=== PATIENT | female | born 1945 | race Caucasian/White ===

== ENCOUNTER → 2016-12-12 | Outpatient (CLI) | payer MEDICARE ==
[~2016-12-12] MED LIST: /BACL20TA; ARIMIDEX; AVONEX; FERR325T; KEPPRA; OXYB5TAB5; TOPI100T; VICO5TAB
[2016-12-12 12:56] LABS: CALCIUM LEVEL 8.4 MG/DL (8.8-10.2); CREATININE FOR GFR 0.99 MG/DL (0.55-1.02)
--- NOTE | 2016-12-12 18:21 | ECGEPIP ---
Stationary ECG Study [facility] Test Date: 2016-12-12 Pat Name: ANGELO DEL CID Department: Room: - Gender: F [employer] Instructor: KATIE : 1945 Requested By: Ruperto Arroyo Order Number: [id number] Reading MD: Yoni Rangel Measurements Intervals [place] Rate: 82 P: 21 CO: 131 QRS: -9 QRSD: 85 T: 2 QT: 381 QTc: 445 Interpretive Statements SINUS RHYTHM WITH SINUS ARRHYTHMIA INFERIOR MYOCARDIAL INFARCTION, PROBABLY OLD NO PRIOR TRACING IN THE SYSTEM. THERE WAS ARTIFACT MASKING THE BASELINE, NOTED PARTICULARLY IN THE LIMB LEADS Electronically Signed On 12-12-2016 18:21:23 EDT by Yoni Rangel
== END ==
LOC: M LAB 12:06
PROVIDERS: ATTEND Ophthalmology
DX: Z01.818 Encounter for other preprocedural examination (principal); H25.12 Age-related nuclear cataract, left eye

== ENCOUNTER → 2016-12-22 | Day surgery (SDC) | payer MEDICARE ==
[~2016-12-22] VITALS: Ht 154.9 cm; Wt 88.5 kg
[~2016-12-22] MED LIST changes: +ACETAMINOPHEN 325 MG TAB PO PRN; +ACETYLCHOLINE OPHTH SOLN 1% 2ML As Ordered ONE; +BALANCED SALT IRRIGATION SOLUTION 500ML BAG (FOR OR EYE MACHINE) As Ordered ONE; +CEFUROXIME 1MG/0.1ML INTRACAMERAL INJ As Ordered ONE; +D5W/0.2% SODIUM CHLORIDE 1,000 ML IV SCH; +HEALON DUET (HEALON 10MG/ML 0.55ML & HEALON ENDOCOAT 30MG/ML 0.85ML) As Ordered ONE; +KEPP1TAB2 PO; +LIDOCAINE 0.75%/EPINEPHRINE 0.025% IN BSS 1ML SYR INTRACAMERAL (OR ONLY) As Ordered ONE; +MIDAZOLAM INJ 2 MG/2 ML VIAL (J2250) As Ordered ONE; +OFLOXACIN 0.3 % (OCUFLOX) OPTH SOL 5ML OS ONE; +ONDANSETRON 4MG/2ML VIAL (J2405) IV PRN; +OXYBPOW XX; +PHENYLEPHRINE 2.5% OPHTH SOL 2ML OS ONE; +POVIDONE-IODINE 5% OPHTH PREP SOL 30ML As Ordered ONE; +PROPARACAINE 0.5% OPHTH SOL 15ML OS ONE; +TAMO20TA4 PO; +TOBRADEX OPHTH OINT 3.5 GM As Ordered ONE; +TOPA100T8 PO; +TRIMETHOBENZAMIDE 300 MG CAP PO PRN; +TROPICAMIDE 1% OPHTH SOLN 2 ML OS ONE; +ZOCO20TA PO; +fentaNYL 100 MCG/2 ML INJECTION (J3010) As Ordered ONE
[2016-12-22 11:35] VITALS: BP 140/77
--- NOTE | 2016-12-22 17:43 | RO ---
DATE OF PROCEDURE: 12/22/2016 PREOPERATIVE DIAGNOSIS: 1. Visually significant nuclear sclerotic cataract, left eye. 2. Fuchs endothelial corneal dystrophy. POSTOPERATIVE DIAGNOSIS: 1. Visually significant nuclear sclerotic cataract, Age-related cataract, left eye. 2. Fuchs endothelial corneal dystrophy. PROCEDURE: Cataract extraction with use of phacoemulsification and placement of intraocular lens Franklin [id number], 23.0 diopter, left eye. SURGEON: Andrew Ervin DO ROD PLACER: ANESTHESIA: Local with monitored anesthesia care (MAC). COMPLICATIONS: None. POSTOPERATIVE CONDITION: Stable. INDICATION FOR SURGERY: Blurred vision left eye affecting patient's activities of daily living. DESCRIPTION OF PROCEDURE: The patient was seen in the preoperative area and properly identified. The correct operative eye was identified and marked. Attention was turned to that eye. The patient received topical antibiotics in the preoperative area. The patient then received topical dilating drops consisting of tropicamide and phenylephrine. The patient was then transferred to the operating room. The correct side was reidentified. The patient received topical anesthetics and antibiotics on the surface of the eye. The eye was prepped and draped in a sterile fashion. The upper and lower eyelids were isolated with Tegaderm tape, and the lids were held open with an adjustable speculum. Using a sideport blade, a paracentesis incision was made. Intraocular preservative-free lidocaine was then injected into the anterior chamber. Viscoelastic was then injected into the anterior chamber through the paracentesis. Using a 2.65 mm sharp-tipped keratome, the anterior chamber was entered via a temporal clear corneal incision. A continuous curvilinear capsulorrhexis was created with the aid of a 26-gauge cystotome and Utrata forceps. Hydrodissection was performed with balanced salt solution (BSS) on a blunt cannula until the nucleus was freely mobile. Additional viscoelastic was placed to protect the corneal endothelium. The crystalline lens was phacoemulsified and aspirated. Additional cohesive viscoelastic was placed into the capsular bag to deepen it. An Franklin [id number] 23.0 diopter lens was placed into the capsular bag and confirmed by visualizing the continuous curvilinear capsulorrhexis. Additional irrigation and aspiration was used to remove cortical material and remaining viscoelastic. The clear corneal incision was hydrated with BSS on a blunt cannula. The lens was well positioned. The incisions were then tested for leaks and found to be negative. The eye was then palpated for appropriate pressure and adjusted accordingly with BSS. Cefuroxime, 0.5cc, was injected into the anterior chamber. The eyelid speculum was then carefully removed. Tobradex ointment was placed in the eye. An eye patch and shield were then secured over the eye. The patient tolerated the procedure well and was discharged to the recovery unit in a stable condition. BRANDON
== END | disposition home or self-care (01) ==
LOC: M SDC 09:02
PROVIDERS: ATTEND Ophthalmology
DX: H25.012 Cortical age-related cataract, left eye (principal); H18.51 Endothelial corneal dystrophy; R73.03 Prediabetes; E78.00 Pure hypercholesterolemia, unspecified; G35 Multiple sclerosis; E66.09 Other obesity due to excess calories; G62.9 Polyneuropathy, unspecified; Z68.38 Body mass index [BMI] 38.0-38.9, adult; Z88.8 Allergy status to other drugs, medicaments and biological substances; Z91.040 Latex allergy status; Z79.899 Other long term (current) drug therapy; Z85.3 Personal history of malignant neoplasm of breast; Z86.69 Personal history of other diseases of the nervous system and sense organs; Z92.21 Personal history of antineoplastic chemotherapy; Z92.3 Personal history of irradiation; Z78.0 Asymptomatic menopausal state
CPT/HCPCS: 66984; J2250; J3010; V2632

== ENCOUNTER → 2017-05-29 | Outpatient (REF) | payer MEDICARE ==
[~2017-05-29] MED LIST changes: -ACETAMINOPHEN 325 MG TAB PO PRN; -ACETYLCHOLINE OPHTH SOLN 1% 2ML As Ordered ONE; -BALANCED SALT IRRIGATION SOLUTION 500ML BAG (FOR OR EYE MACHINE) As Ordered ONE; -CEFUROXIME 1MG/0.1ML INTRACAMERAL INJ As Ordered ONE; -D5W/0.2% SODIUM CHLORIDE 1,000 ML IV SCH; -HEALON DUET (HEALON 10MG/ML 0.55ML & HEALON ENDOCOAT 30MG/ML 0.85ML) As Ordered ONE; -LIDOCAINE 0.75%/EPINEPHRINE 0.025% IN BSS 1ML SYR INTRACAMERAL (OR ONLY) As Ordered ONE; -MIDAZOLAM INJ 2 MG/2 ML VIAL (J2250) As Ordered ONE; -OFLOXACIN 0.3 % (OCUFLOX) OPTH SOL 5ML OS ONE; -ONDANSETRON 4MG/2ML VIAL (J2405) IV PRN; -PHENYLEPHRINE 2.5% OPHTH SOL 2ML OS ONE; -POVIDONE-IODINE 5% OPHTH PREP SOL 30ML As Ordered ONE; -PROPARACAINE 0.5% OPHTH SOL 15ML OS ONE; -TOBRADEX OPHTH OINT 3.5 GM As Ordered ONE; +TOPA100T12 PO; -TOPA100T8 PO; -TRIMETHOBENZAMIDE 300 MG CAP PO PRN; -TROPICAMIDE 1% OPHTH SOLN 2 ML OS ONE; -fentaNYL 100 MCG/2 ML INJECTION (J3010) As Ordered ONE
[2017-05-29 13:02] LABS: BASO % 0.9 % (0.0-1.0); EOS # 0.1 K/mm3 (0.0-0.50); EOS % 1.2 % (0.0-3.0); LARGE UNSTAINED CELL # 0.1 K/mm3 (0.0-0.4); LYMPH # 1.5 K/mm3 (1.5-4.5); MEAN CORPUSCULAR HEMOGLOBIN 31.4 pg (27.0-33.0); MEAN CORPUSCULAR HGB CONC 31.2 g/dl (32.0-36.5); MEAN CORPUSCULAR VOLUME 100.8 fl (80.0-96.0); MONO # 0.3 K/mm3 (0.0-0.8); MONO % 5.2 % (0.0-5.0); NEUTROPHILS # 3.6 K/mm3 (1.8-7.7); NEUTROPHILS % 64.8 % (36.0-66.0); PLATELET COUNT, AUTOMATED 197 k/mm3 (150-450); RED CELL DISTRIBUTION WIDTH 13.2 % (11.5-14.5); WHITE BLOOD COUNT 5.5 K/mm3 (4.0-10.0)
[2017-05-29 13:24] LABS: FOLATE 4.5 NG/ML; VITAMIN B12 LEVEL 224 PG/ML
[2017-05-29 13:29] LABS: ALBUMIN 3.1 GM/DL (3.2-5.2); ALBUMIN/GLOBULIN RATIO 0.79 (1.00-1.93); ALKALINE PHOSPHATASE 74 U/L (45-117); ALT/SGPT 12 U/L (12-78); ANION GAP 10 MEQ/L (8-16); AST/SGOT 14 U/L (15-37); BILIRUBIN,TOTAL 0.2 MG/DL (0.2-1.0); BLOOD UREA NITROGEN 13 MG/DL (7-18); CALCIUM LEVEL 8.8 MG/DL (8.8-10.2); CARBON DIOXIDE LEVEL 24 MEQ/L (21-32); CHLORIDE LEVEL 113 MEQ/L (98-107); CREATININE FOR GFR 0.91 MG/DL (0.55-1.02); GLOMERULAR FILTRATION RATE > 60.0 (>39); GLUCOSE, FASTING 107 MG/DL (83-110); SODIUM LEVEL 147 MEQ/L (136-145)
== END ==
LOC: M LABNEURO 11:00
PROVIDERS: ATTEND Psychiatry & Neurology Neurology
DX: G35 Multiple sclerosis (principal)

== ENCOUNTER → 2017-06-07 | Outpatient (REF) | payer MEDICARE | LOC: M LAB REF 16:46 | PROVIDERS: ATTEND Internal Medicine | DX: Z85.3 Personal history of malignant neoplasm of breast (principal) ==

== ENCOUNTER → 2017-11-13 | Outpatient (REF) | payer MEDICARE ==
[2017-11-13 19:02] LABS: ALBUMIN 3.2 GM/DL (3.2-5.2); ALBUMIN/GLOBULIN RATIO 0.82 (1.00-1.93); ALKALINE PHOSPHATASE 90 U/L (45-117); ALT/SGPT 10 U/L (12-78); ANION GAP 6 MEQ/L (8-16); AST/SGOT 10 U/L (7-37); BILIRUBIN,TOTAL 0.3 MG/DL (0.2-1.0); BLOOD UREA NITROGEN 13 MG/DL (7-18); CARBON DIOXIDE LEVEL 26 MEQ/L (21-32); CHLORIDE LEVEL 114 MEQ/L (98-107); GLOMERULAR FILTRATION RATE > 60.0 (>39); GLUCOSE, FASTING 102 MG/DL (70-100); RHEUMATOID FACTOR QUANT < 10.0 IU/ML (0-15.0); SODIUM LEVEL 146 MEQ/L (136-145); TOTAL PROTEIN 7.1 GM/DL (6.4-8.2)
[2017-11-13 19:10] LABS: BASO # 0.1 10^3/uL (0.0-0.2); EOS # 0.1 10^3/uL (0.0-0.50); EOS % 1.2 % (0.0-3.0); HEMATOCRIT 47.2 % (36.0-47.0); HEMOGLOBIN 14.4 g/dl (12.0-16.0); IMMATURE GRANULOCYTE % 0.5 % (0-3.0); LYMPH # 1.6 10^3/uL (1.5-4.5); MEAN CORPUSCULAR HEMOGLOBIN 29.6 pg (27.0-33.0); MEAN CORPUSCULAR HGB CONC 30.5 g/dl (32.0-36.5); MEAN CORPUSCULAR VOLUME 96.9 fl (80.0-96.0); MONO # 0.3 10^3/uL (0.0-0.8); NEUTROPHILS # 3.9 10^3/uL (1.8-7.7); NEUTROPHILS % 65.3 % (36.0-66.0); PLATELET COUNT, AUTOMATED 239 10^3/uL (150-450); RED BLOOD COUNT 4.87 10^6/uL (4.00-5.40); RED CELL DISTRIBUTION WIDTH 12.4 % (11.5-14.5)
[2017-11-13 20:41] LABS: ERYTHROCYTE SEDIMENTATION RATE 13 mm/hr (0-30)
[2017-11-14 09:15] LABS: DRVV SCREEN 41.5 SEC
[2017-11-15 14:13] LABS: ANTINUCLEAR ANTIBODIES DIRECT Negative (Negative)
== END ==
LOC: M LABNEURO 17:01
DX: M19.90 Unspecified osteoarthritis, unspecified site (principal); G35 Multiple sclerosis
CPT/HCPCS: 80053

== ENCOUNTER → 2017-12-11 | Outpatient (REF) | payer MEDICARE ==
[2017-12-12 10:33] LABS: CA15-3 ANTIGEN 12.5 U/ML (<32.4)
== END ==
LOC: M LAB REF 12:10
DX: Z85.3 Personal history of malignant neoplasm of breast (principal)
CPT/HCPCS: 86300

== ENCOUNTER 2018-08-02 21:50 | Emergency (ER) | payer OTHER, MEDICARE ==
[2018-08-02 22:58] LABS: BASO # 0.1 10^3/uL (0.0-0.2); BASO % 0.6 % (0.0-1.0); EOS # 0.1 10^3/uL (0.0-0.50); EOS % 0.7 % (0.0-3.0); HEMATOCRIT 45.8 % (36.0-47.0); HEMOGLOBIN 14.2 g/dl (12.0-15.5); IMMATURE GRANULOCYTE % 0.5 % (0-3.0); LYMPH # 1.7 10^3/uL (1.5-4.5); LYMPH % 16.8 % (24.0-44.0); MEAN CORPUSCULAR HEMOGLOBIN 29.4 pg (27.0-33.0); MEAN CORPUSCULAR VOLUME 94.8 fl (80.0-96.0); MONO # 0.6 10^3/uL (0.0-0.8); MONO % 5.4 % (0.0-5.0); NEUTROPHILS # 7.7 10^3/uL (1.8-7.7); PLATELET COUNT, AUTOMATED 214 10^3/uL (150-450); RED BLOOD COUNT 4.83 10^6/uL (4.00-5.40); RED CELL DISTRIBUTION WIDTH 12.8 % (11.5-14.5); WHITE BLOOD COUNT 10.1 10^3/uL (4.0-10.0)
[2018-08-02] MEDS: MORPHINE 2 MG/ML 1ML SYRINGE (J2270) IV ×2 (23:00→23:56)
[2018-08-02] MEDS: ONDANSETRON 4MG/2ML VIAL (J2405) IV (23:00)
[2018-08-02 23:21] LABS: ANION GAP 8 MEQ/L (8-16); BLOOD UREA NITROGEN 16 MG/DL (7-18); CALCIUM LEVEL 8.8 MG/DL (8.8-10.2); CARBON DIOXIDE LEVEL 25 MEQ/L (21-32); CHLORIDE LEVEL 110 MEQ/L (98-107); CREATININE FOR GFR 0.88 MG/DL (0.55-1.30); GLOMERULAR FILTRATION RATE > 60.0 (>39); GLUCOSE, FASTING 89 MG/DL (70-100); POTASSIUM SERUM 4.1 MEQ/L (3.5-5.1); SODIUM LEVEL 143 MEQ/L (136-145)
[2018-08-02] MEDS ORDERED: ISOVUE-370 76% 100ML VIAL (Q9967) As Ordered (23:24)
[2018-08-03] MEDS: OXYCODONE/APAP 5MG/325MG(BULK FOR ED) 1 TABLET PO (01:41)
== END 2018-08-03 01:46 | disposition home or self-care (01) ==
LOC: M ED 08-03 01:46
DX: T14.8XXA Other injury of unspecified body region, initial encounter (principal); V48.5XXA Car driver injured in noncollision transport accident in traffic accident, initial encounter
CPT/HCPCS: J2405

== ENCOUNTER → 2018-09-10 | Outpatient (REF) | payer MEDICARE ==
[2018-09-10 13:31] LABS: BASO # 0.1 10^3/uL (0.0-0.2); BASO % 0.8 % (0.0-1.0); EOS # 0.1 10^3/uL (0.0-0.50); EOS % 1.4 % (0.0-3.0); HEMATOCRIT 46.7 % (36.0-47.0); HEMOGLOBIN 14.1 g/dl (12.0-15.5); IMMATURE GRANULOCYTE % 0.7 % (0-3.0); LYMPH # 1.7 10^3/uL (1.5-4.5); LYMPH % 23.9 % (24.0-44.0); MEAN CORPUSCULAR HEMOGLOBIN 29.1 pg (27.0-33.0); MEAN CORPUSCULAR HGB CONC 30.2 g/dl (32.0-36.5); MEAN CORPUSCULAR VOLUME 96.3 fl (80.0-96.0); MONO # 0.5 10^3/uL (0.0-0.8); MONO % 6.4 % (0.0-5.0); NEUTROPHILS # 4.7 10^3/uL (1.8-7.7); NEUTROPHILS % 66.8 % (36.0-66.0); PLATELET COUNT, AUTOMATED 222 10^3/uL (150-450); RED BLOOD COUNT 4.85 10^6/uL (4.00-5.40); RED CELL DISTRIBUTION WIDTH 13.2 % (11.5-14.5); WHITE BLOOD COUNT 7.1 10^3/uL (4.0-10.0)
[2018-09-10 13:36] LABS: ALBUMIN 3.2 GM/DL (3.2-5.2); ALBUMIN/GLOBULIN RATIO 0.82 (1.00-1.93); ALKALINE PHOSPHATASE 96 U/L (45-117); ALT/SGPT 13 U/L (12-78); ANION GAP 7 MEQ/L (8-16); AST/SGOT 12 U/L (7-37); BILIRUBIN,TOTAL 0.3 MG/DL (0.2-1.0); BLOOD UREA NITROGEN 12 MG/DL (7-18); CARBON DIOXIDE LEVEL 26 MEQ/L (21-32); CHLORIDE LEVEL 111 MEQ/L (98-107); CREATININE FOR GFR 0.88 MG/DL (0.55-1.30); GLOMERULAR FILTRATION RATE > 60.0 (>39); GLUCOSE, FASTING 109 MG/DL (70-100); POTASSIUM SERUM 4.3 MEQ/L (3.5-5.1); SODIUM LEVEL 144 MEQ/L (136-145); TOTAL PROTEIN 7.1 GM/DL (6.4-8.2)
[2018-09-10 13:42] LABS: VITAMIN B12 LEVEL 367 PG/ML
[2018-09-10 13:43] LABS: FOLATE > 24.0 NG/ML
[2018-09-13 14:24] LABS: TOPIRAMATE LEVEL 15.7 ug/mL (2.0-25.0)
[2018-09-13 14:24] LABS: LEVETIRACETAM (KEPPRA) 37.7 ug/mL (10.0-40.0)
== END ==
LOC: M LABNEURO 10:51
DX: G35 Multiple sclerosis (principal)
CPT/HCPCS: 82746

== ENCOUNTER → 2019-03-13 | Outpatient (CLI) | payer MEDICARE ==
[~2019-03-13] MED LIST changes: -/BACL20TA; +ASPI81CH33 PO; +BACL1TAB9; +BACL1TAB9 PO; +OXYB5TAB10 PO; +POTA20TA6 PO; -TAMO20TA4 PO; +TAMO20TA8 PO
--- NOTE | 2019-03-15 13:40 | DEXA ---
AP SPINE L1 - L4 1.083 -0.9 0.8 LT FEMUR TOTAL 0.657 -2.8 -1.2 LT NECK 0.634 -2.9 -1.1 RT FEMUR TOTAL 0.785 -1.8 -0.1 RT NECK 0.705 -2.4 -0.6 TOTAL BODY TOTAL OTHER COMMENTS: Normal bone densitometry of the spine. There is low bone density of the right hip. There is osteoporosis of the left hip. The density of the spine has decreased 1.5% since the initial exam on 05/29/2006. The spine density has increased 5.0% since most recent exam on 10/07/2008. The density of the left hip has decreased 24.3% since the initial exam on 05/29/2006. The density of the left hip has decreased 18.7% since the most recent exam on 10/07/2008. The density of the right hip has decreased 11.9% since the initial exam on 05/29/2006. The density of the right hip has decreased 6.7% since recent exam on 10/07/2008. FOLLOW-UP: Recommendation for the next bone density exam: 2 years. BRANDON
== END ==
LOC: M WHC 12:24
PROVIDERS: ATTEND Internal Medicine Medical Oncology
DX: M85.80 Other specified disorders of bone density and structure, unspecified site (principal); Z85.3 Personal history of malignant neoplasm of breast

== ENCOUNTER 2019-05-02 11:49 | Day surgery (SDC) | payer MEDICARE ==
[~2019-05-02] VITALS: Ht 152.4 cm; Wt 82.6 kg
[~2019-05-02 11:49] MED LIST changes: +LR 1,000 ML IV ONE
[2019-05-02] MEDS ORDERED: MIDAZOLAM INJ 2 MG/2 ML VIAL (J2250) As Ordered ONE (13:46)
[2019-05-02] MEDS ORDERED: dexameTHASONE 4 MG/ML 1ML VIAL (J1100) As Ordered ONE (13:46)
[2019-05-02] MEDS ORDERED: ACETAMINOPHEN 1000MG 100ML IV BTL (OFIRMEV) (J0131 PER 10MG) As Ordered ONE (13:46)
[2019-05-02] MEDS ORDERED: ONDANSETRON 4MG/2ML VIAL (J2405) As Ordered ONE (13:46)
[2019-05-02] MEDS ORDERED: LIDOCAINE 2% INJ 100 MG/5 ML SDV (FOR ANES.) As Ordered ONE (13:46)
[2019-05-02] MEDS ORDERED: PROPOFOL 200 MG/20 ML VIAL As Ordered ONE (13:46)
[2019-05-02] MEDS ORDERED: fentaNYL 100 MCG/2 ML INJECTION (J3010) As Ordered ONE (13:46)
[2019-05-02] MEDS ORDERED: ePHEDrine SULFATE 25 MG/5 ML(5MG/ML) SYRINGE As Ordered ONE (13:48)
[2019-05-02] MEDS ORDERED: LR 1,000 ML IV SCH (15:00)
[2019-05-02] MEDS ORDERED: fentaNYL 100 MCG/2 ML INJECTION (J3010) IV PRN (15:00)
[2019-05-02] MEDS ORDERED: oxyCODONE 5MG TAB PO PRN (15:00)
--- NOTE | 2019-05-02 15:00 | RO ---
DATE OF PROCEDURE: 05/02/2019 PREPROCEDURE DIAGNOSES: History of breast cancer, tamoxifen and abnormal ultrasound. POSTPROCEDURE DIAGNOSES: History of breast cancer, tamoxifen and abnormal ultrasound. PROCEDURE: Dilation and curettage, hysteroscopy, MyoSure. SURGEON: Dr. Carol Ann Merino. ASSOCIATE DIRECTOR FINANCIAL AID: None. ANESTHESIA: Laryngeal mask anesthesia (LMA). FINDINGS: Synechiae. DESCRIPTION OF PROCEDURE: Fanny was brought to the operating room where sufficient LMA anesthesia was induced and she was prepped, draped and positioned in the usual sterile fashion. We did not place a weighted speculum because she has marked atrophy and even with just the prep, one part of the skin had split at the opening. Grasped the cervix with the single tooth tenaculum. This uterus would, with some effort, be approachable from below, should that become necessary in the future. The uterus was attempted to be sounded but we only got 4.5 and so we tried with the smallest dilator and we could not locate the canal. We dilated a little bit more just to 4 so that we could placed one of the newer hysteroscopes, which are of course only a few millimeters across and we were able with a 12 mm hysteroscope to visualize, first the endocervical canal but then to see that there really appeared to be a central synechiae and two sort of sides. I think the patient had a previous dilation and curettage and there is scar tissue here. So we dilated up enough to allow introduction of the MyoSure hysteroscope and then under direct visualization use the light to sample of all the scar tissue and we were able to watch under direct visualization so knew we had not perforated. We were able to go back and forward several times so we knew we had not missed the appropriate canal so to speak. We were able to sample what is there, but really, I think this is all scar tissue, given the ultrasound. This appearance really did not have a lot of endometrium. I would have every expectation that there is not a lot of endometrium on the sample. But fortunately, we were able to sample under direct visualization so that we could see that we had not perforated. Stabilizing the uterus, we were able to sample it and take down that central synechiae between those two paths, but we still did not really have a typical cavity appearance. With all that sampling and most of the fluid, of course coming back out from such a short postmenopausal uterus, once we had sampled aggressively, we went ahead and ended the case. FLUID REPLACEMENT: Crystalloid. COMPLICATIONS: There was no really direct complications but of course the patient's medical condition and her scar tissue impacted the surgery. CONDITION AND DISPOSITION: Fanny tolerated the procedure well and was recovering in the recovery room in good condition.
[2019-05-02 16:10] VITALS: BP 125/63
== END 2019-05-02 16:24 | disposition home or self-care (01) ==
LOC: M SDC 11:49
PROVIDERS: ATTEND Obstetrics & Gynecology
DX: N84.0 Polyp of corpus uteri (principal); N95.0 Postmenopausal bleeding; Z85.3 Personal history of malignant neoplasm of breast; Z92.3 Personal history of irradiation; G35 Multiple sclerosis; G47.30 Sleep apnea, unspecified; Z91.040 Latex allergy status; Z88.0 Allergy status to penicillin; Z88.8 Allergy status to other drugs, medicaments and biological substances; Z79.82 Long term (current) use of aspirin; Z79.899 Other long term (current) drug therapy
CPT/HCPCS: 58558; 88305; J0131; J1100; J2250; J2405; J3010

== ENCOUNTER → 2020-05-29 | Outpatient (CLI) | payer MEDICARE ==
[~2020-05-29] MED LIST changes: -LR 1,000 ML IV ONE
== END ==
LOC: M LABSMTC 11:18
PROVIDERS: ATTEND Anesthesiology
DX: Z11.59 Encounter for screening for other viral diseases (principal)
CPT/HCPCS: C9803; U0003

== ENCOUNTER 2020-06-03 12:07 | Day surgery (SDC) | payer MEDICARE ==
[~2020-06-03] VITALS: Ht 157.5 cm; Wt 79.7 kg
[~2020-06-03 12:07] MED LIST changes: +GASTROGRAFIN SOLUTION 30ML PO SCH; +NS 1,000 ML IV ONE
[2020-06-03] MEDS ORDERED: propofoL 200 MG/20 ML VIAL As Ordered ONE (13:05)
[2020-06-03] MEDS ORDERED: LIDOCAINE 2% 100MG/5ML SDV (FOR ANES.) As Ordered ONE (13:08)
[2020-06-03 13:55] VITALS: BP 135/77
--- NOTE | 2020-06-10 11:31 | ROOR ---
Patient Name: Fanny Espinal Procedure Date: 06/03/2020 1:09 PM Date of : 1945 Age: 75 Room: [facility] Gender: Female Note Status: Finalized Procedure: Total Colonoscopy to Cecum Indications: Screening for colorectal malignant neoplasm Providers: Koby Ervin MD Referring MD: ERICA BHATT JR, MD Requesting Provider: Medicines: Monitored Anesthesia Care Complications: No immediate complications. Procedure: Pre-Anesthesia Assessment: - The heart rate, respiratory rate, oxygen saturations, blood pressure, adequacy of pulmonary ventilation, and response to care were monitored throughout the procedure. The Colonoscope was introduced through the anus and advanced to the cecum, identified by appendiceal orifice and ileocecal valve. The colonoscopy was performed without difficulty. The patient tolerated the procedure well. The quality of the bowel preparation was excellent. Findings: The perianal and digital rectal examinations were normal. Non-bleeding internal hemorrhoids were found during retroflexion. The hemorrhoids were small and Grade I (internal hemorrhoids that do not prolapse). Scattered small-mouthed diverticula were found in the recto-sigmoid colon, sigmoid colon and descending colon. The exam was otherwise without abnormality on direct and retroflexion views. Impression: - Non-bleeding internal hemorrhoids. - Diverticulosis in the recto-sigmoid colon, in the sigmoid colon and in the descending colon. - The examination was otherwise normal on direct and retroflexion views. - No specimens collected. - The exam was otherwise normal to the cecum. Recommendation: - Patient has a contact number available for emergencies. The signs and symptoms of potential delayed complications were discussed with the patient. Return to normal activities tomorrow. Written discharge instructions were provided to the patient. - High fiber diet. - Discharge patient to home. - Continue present medications. - Repeat colonoscopy is not recommended due to current age (66 years or older) for screening purposes. - Return to referring physician. - The findings and recommendations were discussed with the patient. Koby Ervin MD Koby Ervin MD 06/03/2020 1:25:05 PM Number of Addenda: 0 Note Initiated On: 06/03/2020 1:09 PM Estimated Blood Loss: Estimated blood loss: none.
== END 2020-06-03 13:54 | disposition home or self-care (01) ==
LOC: M OPP 12:07
PROVIDERS: ATTEND Internal Medicine Gastroenterology
DX: Z12.11 Encounter for screening for malignant neoplasm of colon (principal); K64.0 First degree hemorrhoids; K57.30 Diverticulosis of large intestine without perforation or abscess without bleeding; G47.30 Sleep apnea, unspecified; G35 Multiple sclerosis; Z79.82 Long term (current) use of aspirin; Z79.899 Other long term (current) drug therapy; Z88.0 Allergy status to penicillin; Z91.040 Latex allergy status; Z85.3 Personal history of malignant neoplasm of breast; Z92.3 Personal history of irradiation

== ENCOUNTER → 2020-12-09 | Outpatient (CLI) | payer MEDICARE ==
[~2020-12-09] MED LIST changes: +ALEN70TA82 PO; +CALC1TAB42 PO; -GASTROGRAFIN SOLUTION 30ML PO SCH; -NS 1,000 ML IV ONE
== END ==
LOC: M LABSMTC 11:03
PROVIDERS: ATTEND Anesthesiology
DX: Z01.812 Encounter for preprocedural laboratory examination (principal); Z20.822 Contact with and (suspected) exposure to COVID-19

== ENCOUNTER 2020-12-14 08:52 | Day surgery (SDC) | payer MEDICARE ==
[~2020-12-14] VITALS: Ht 154.9 cm; Wt 86.2 kg
[~2020-12-14 08:52] MED LIST changes: +OFLOXACIN 0.3 % (OCUFLOX) OPTH SOL 5ML OD ONE; +PHENYLEPHRINE 2.5% OPHTH SOL 2ML OD ONE; +PROPARACAINE 0.5% OPHTH SOL 15ML OD ONE; +TROPICAMIDE 1% OPHTH SOLN 2ML OD ONE
[2020-12-14] MEDS ORDERED: fentaNYL 100 MCG/2 ML INJECTION (J3010) As Ordered ONE (09:22)
[2020-12-14] MEDS ORDERED: MIDAZOLAM INJ 2MG/2ML VIAL (J2250 PER 1MG) As Ordered ONE (09:22)
[2020-12-14] MEDS ORDERED: POVIDONE-IODINE 5% OPHTH PREP SOL 30ML As Ordered ONE (10:52)
[2020-12-14] MEDS ORDERED: DUOVISC (0.50ML VISCOAT/0.55ML PROVISC) OPHTH KIT As Ordered ONE (10:53)
[2020-12-14] MEDS ORDERED: BSS IRR 500ML/OMIDRIA 4ML IRR BAG (OR ONLY) As Ordered ONE (11:17)
[2020-12-14 11:57] VITALS: BP_DIAS 62
[2020-12-14 12:15] VITALS: BP_SYST 136
--- NOTE | 2020-12-15 10:02 | RO ---
OPERATIVE NOTE DATE OF OPERATION: 12/14/2020 PREOPERATIVE DIAGNOSIS: 1. Visually significant nuclear sclerotic cataract, right eye. POSTOPERATIVE DIAGNOSIS: 1. Visually significant nuclear sclerotic cataract, right eye. PROCEDURE: Cataract extraction with use of phacoemulsification and placement of intraocular lens, [id number], 22.0 D. SURGEON: Andrew Ervin DO. LIBRARIAN SPECIALIST: ANESTHESIA: Local (Omidria with MAC). COMPLICATIONS: None. POSTOPERATIVE CONDITION: Stable. INDICATIONS FOR SURGERY: Blurred vision affecting patient's activities of daily living. DESCRIPTION OF PROCEDURE: The patient was seen in the preoperative area and properly identified. The correct operative eye was identified and marked. The patient received topical anesthetic, antibiotics, and topical dilating drops. The patient was then transferred to the operating room. The correct side was re-identified and a time out was performed. The eye was prepped and draped in a sterile fashion. The eyelids were isolated with Tegaderm tape and the lids were held open with an adjustable speculum. A 1.0 mm paracentesis incision was made. Omidria was then injected into the anterior chamber. Viscoelastic was then injected into the anterior chamber through the paracentesis. Using a 2.4 mm sharp-tipped keratome, the anterior chamber was entered via a temporal clear cornea incision. A continuous curvilinear capsulorrhexis was created with Utrata forceps. Hydrodissection was performed with BSS on a blunt cannula until the nucleus was able to rotate freely. The crystalline lens was phacoemulsified and aspirated. Irrigation/aspiration was used to remove the cortical material Cohesive viscoelastic was placed into the capsular bag to deepen it. The implant was placed into the capsular bag and allowed to unfold. Placement was confirmed by visualizing the anterior capsulorrhexis. Irrigation/aspiration was used to remove the viscoelastic. The clear corneal incision was hydrated with BSS on a blunt cannula. The lens was well positioned. Intracameral antibiotic was injected into the anterior chamber. The incisions were then tested for leaks and found to be negative. The eye was then palpated for appropriate pressure and adjusted accordingly with BSS. The eyelid speculum was then carefully removed. A shield was placed over the eye. The patient tolerated the procedure well and was discharge to the recovery unit in a stable condition.
== END 2020-12-14 12:23 | disposition home or self-care (01) ==
LOC: M OPP 08:52
PROVIDERS: ATTEND Ophthalmology
DX: H25.11 Age-related nuclear cataract, right eye (principal); E78.5 Hyperlipidemia, unspecified; G35 Multiple sclerosis; G40.909 Epilepsy, unspecified, not intractable, without status epilepticus; Z79.82 Long term (current) use of aspirin; Z85.3 Personal history of malignant neoplasm of breast; Z92.3 Personal history of irradiation; Z92.21 Personal history of antineoplastic chemotherapy; G47.30 Sleep apnea, unspecified; Z91.040 Latex allergy status; Z88.0 Allergy status to penicillin; Z88.8 Allergy status to other drugs, medicaments and biological substances; Z79.899 Other long term (current) drug therapy
CPT/HCPCS: 66984; J1097; J2250; J3010; V2632

== ENCOUNTER → 2020-12-31 | Outpatient (REF) | payer MEDICARE ==
[~2020-12-31] MED LIST changes: -OFLOXACIN 0.3 % (OCUFLOX) OPTH SOL 5ML OD ONE; -PHENYLEPHRINE 2.5% OPHTH SOL 2ML OD ONE; -PROPARACAINE 0.5% OPHTH SOL 15ML OD ONE; -TROPICAMIDE 1% OPHTH SOLN 2ML OD ONE
== END ==
LOC: M LAB REF 16:16
PROVIDERS: ATTEND Internal Medicine
DX: R41.3 Other amnesia (principal); R56.9 Unspecified convulsions

== ENCOUNTER → 2021-03-15 | Outpatient (CLI) | payer MEDICARE ==
--- NOTE | 2021-03-15 15:05 | DEXAMM ---
INDICATION: OSTEOPOROSIS. COMPARISON: 03/13/2019 as well as other prior exams. TECHNIQUE: Bone density was measured using dual-energy x-ray absorptiometry (DEXA). FINDINGS: AP SPINE L1-L4 BMD 1.135 g/cm2 Young Adult T-Score -0.5 Age Matched Z-Score 1.3. LT FEMUR, TOTAL BMD 0.699 g/cm2 Young Adult T-Score -2.5 Age Matched Z-Score -0.7. LT NECK BMD 0.675 g/cm2 Young Adult T-Score -2.6 Age Matched Z-Score -0.7. RT FEMUR, TOTAL BMD 0.798 g/cm2 Young Adult T-Score -1.7 Age Matched Z-Score 0.1. RT NECK BMD 0.670 g/cm2 Young Adult T-Score -2.6 Age Matched Z-Score -0.7. IMPRESSION: There is normal bone density of the spine. There is osteoporosis of the left hip. There is osteoporosis of the right hip. The density of the spine has increased 3.3% since the initial exam on 05/29/2006. The density of the spine increased 4.8% since most recent exam on 03/13/2019. The density of the left hip has decreased 19.5% since initial exam on 05/29/2006. The density of the left hip has increased 6.4% since most recent exam on 03/13/2019. The density of the right hip has decreased 10.4% since the initial exam on 05/29/2006. The density of the right hip has increased 1.7% since the most recent exam on 03/13/2019. FOLLOW-UP: Recommendation for the next bone density exam: 2 years. <Electronically signed by Sameer Lombardo > 03/15/21 [id number]
== END ==
LOC: M WHC 13:18
PROVIDERS: ATTEND Internal Medicine Hematology & Oncology
DX: M81.0 Age-related osteoporosis without current pathological fracture (principal)

== ENCOUNTER 2021-09-03 11:52 | Outpatient (CLI) | payer MEDICARE ==
[~2021-09-03] VITALS: Ht 152.4 cm; Wt 88.0 kg
[~2021-09-03 11:52] MED LIST changes: +ALBUTEROL 90 MCG/ACT 8GM HFA INHALER INH PRN; +ALBUTEROL SULFATE 2.5 MG/0.5 ML INH NEB SOLN INH PRN; +EPINEPHrine INJ 1 MG/ML 1ML AMP IM PRN; +NS 1,000 ML IV SCH; +POTA10CA32 PO; +XARE20TA PO; +diphenhydrAMINE 50MG/ML VIAL (J1200) IV PRN; +methylPREDNISolone 125MG 2ML VIAL IV PRN
[2021-09-03] MEDS ORDERED: ACETAMINOPHEN TAB 650MG DOSE (2X325MG) PO ONE (12:00)
[2021-09-03] MEDS ORDERED: [UNRECOGNIZED DRUG - OTHER] IV ONE ×2 (12:00)
[2021-09-03] MEDS ORDERED: diphenhydrAMINE 25MG CAP PO ONE (12:00)
[2021-09-03 12:10] VITALS: BP 125/78
[2021-09-03 12:40] VITALS: BP 118/66
[2021-09-03 13:10] VITALS: BP 108/57
[2021-09-03 14:10] VITALS: BP 114/56
[2021-09-06] MEDS ORDERED: ALEN70TA82 PO (11:11)
== END 2021-09-03 14:10 | disposition home or self-care (01) ==
LOC: M OPCLI4PR 11:52
PROVIDERS: ATTEND Internal Medicine
DX: U07.1 COVID-19 (principal)

== ENCOUNTER → 2021-09-23 | Outpatient (REF) | payer MEDICARE ==
[~2021-09-23] MED LIST changes: -ALBUTEROL 90 MCG/ACT 8GM HFA INHALER INH PRN; -ALBUTEROL SULFATE 2.5 MG/0.5 ML INH NEB SOLN INH PRN; -EPINEPHrine INJ 1 MG/ML 1ML AMP IM PRN; -NS 1,000 ML IV SCH; -diphenhydrAMINE 50MG/ML VIAL (J1200) IV PRN; -methylPREDNISolone 125MG 2ML VIAL IV PRN
== END ==
LOC: M LAB REF 16:13
PROVIDERS: ATTEND Internal Medicine
DX: N39.0 Urinary tract infection, site not specified (principal)

== ENCOUNTER → 2021-10-05 | Outpatient (CLI) | payer MEDICARE ==
[2021-10-05 13:33] LABS: ALBUMIN 3.3 GM/DL (3.2-5.2); BILIRUBIN,DIRECT 0.1 MG/DL (0.0-0.2); BILIRUBIN,TOTAL 0.3 MG/DL (0.2-1.0); TOTAL PROTEIN 7.3 GM/DL (6.4-8.2)
== END ==
LOC: M LAB 11:09
PROVIDERS: ATTEND Internal Medicine
DX: R74.8 Abnormal levels of other serum enzymes (principal)

== ENCOUNTER → 2022-10-04 | Outpatient (REF) | payer MEDICARE ==
[~2022-10-04] MED LIST changes: +POTA-151 PO; -POTA10CA32 PO; +POTA10CA33 PO; -POTA20TA6 PO; +SIMV-253 PO; -ZOCO20TA PO
== END ==
LOC: M LAB REF 16:19
PROVIDERS: ATTEND Internal Medicine
DX: R41.3 Other amnesia (principal); R56.9 Unspecified convulsions

== ENCOUNTER → 2023-01-05 | Outpatient (CLI) | payer MEDICARE | LOC: M WUC 15:10 | PROVIDERS: ATTEND Nurse Practitioner Family | DX: R07.9 Chest pain, unspecified (principal) ==

== ENCOUNTER → 2023-04-05 | Outpatient (CLI) | payer MEDICARE ==
[~2023-04-05] MED LIST changes: +ISOVUE-370 76% 100ML VIAL As Ordered ONE; -POTA10CA33 PO; +POTA10CA60 PO
[2023-04-05 12:06] LABS: BLOOD UREA NITROGEN 12 MG/DL (9-23); CALCIUM LEVEL 9.8 MG/DL (8.3-10.6); CARBON DIOXIDE LEVEL 26 MMOL/L (20-31); CHLORIDE LEVEL 111 MMOL/L (98-107); CREATININE FOR GFR 0.81 MG/DL (0.55-1.30); GLOMERULAR FILTRATION RATE > 60.0 (>39); GLUCOSE, FASTING 102 MG/DL (74-106); POTASSIUM SERUM 4.1 MMOL/L (3.5-5.1); SODIUM LEVEL 143 MMOL/L (136-145)
== END ==
LOC: M RAD 10:42
PROVIDERS: ATTEND Student in an Organized Health Care Education/Training Program
DX: R59.0 Localized enlarged lymph nodes (principal)
CPT/HCPCS: 36415; 70491; 80048; Q9967

== ENCOUNTER → 2023-04-10 | Outpatient (REF) | payer MEDICARE ==
[~2023-04-10] MED LIST changes: -ISOVUE-370 76% 100ML VIAL As Ordered ONE
== END ==
LOC: M LAB REF 16:49
PROVIDERS: ATTEND Internal Medicine
DX: R56.9 Unspecified convulsions (principal)

== ENCOUNTER → 2023-04-11 | Outpatient (CLI) | payer MEDICARE | LOC: M WUC 15:02 | PROVIDERS: ATTEND Internal Medicine | DX: M51.37 Other intervertebral disc degeneration, lumbosacral region (principal) ==

== ENCOUNTER → 2023-04-12 | Outpatient (CLI) | payer MEDICARE ==
[~2023-04-12] MED LIST changes: +LIDOCAINE 1% MDV 20ML VIAL As Ordered ONE
[2023-04-12 14:20] VITALS: TEMP 97.6
[2023-04-12 15:20] VITALS: BP 135/75; O2SAT 95
== END ==
LOC: M IRPRO 14:06
PROVIDERS: ATTEND Nurse Practitioner Family
DX: R59.0 Localized enlarged lymph nodes (principal)

== ENCOUNTER → 2023-07-28 | Outpatient (CLI) | payer MEDICARE ==
[~2023-07-28] MED LIST changes: -LIDOCAINE 1% MDV 20ML VIAL As Ordered ONE; -OXYB5TAB10 PO; +OXYB5TAB11 PO
[2023-07-28 17:52] LABS: BASO # 0.1 10^3/uL (0.0-0.2); BASO % 0.9 % (0.0-1.0); EOS # 0.1 10^3/uL (0.0-0.5); HEMATOCRIT 53.5 % (36.0-47.0); HEMOGLOBIN 16.3 g/dl (12.0-15.5); LYMPH # 2.2 10^3/uL (1.5-5.0); MEAN CORPUSCULAR HEMOGLOBIN 29.9 pg (27.0-33.0); MEAN CORPUSCULAR HGB CONC 30.5 g/dl (32.0-36.5); MONO % 9.1 % (2.0-8.0); NEUTROPHILS # 7.4 10^3/uL (1.5-8.5); NEUTROPHILS % 67.3 % (36.0-66.0); PLATELET COUNT, AUTOMATED 239 10^3/uL (150-450); RED BLOOD COUNT 5.46 10^6/uL (4.00-5.40)
[2023-07-28 18:26] LABS: ALBUMIN 3.2 G/DL (3.2-5.2); ALKALINE PHOSPHATASE 98 U/L (46-116); ALT/SGPT 26 U/L (7.0-40); AST/SGOT 22 U/L (<34); BILIRUBIN,TOTAL 0.3 MG/DL (0.3-1.2); BLOOD UREA NITROGEN 11 MG/DL (9-23); CALCIUM LEVEL 10.3 MG/DL (8.3-10.6); CARBON DIOXIDE LEVEL 26 MMOL/L (20-31); CHLORIDE LEVEL 107 MMOL/L (98-107); GLOMERULAR FILTRATION RATE > 60.0 (>39); GLUCOSE, FASTING 109 MG/DL (74-106); POTASSIUM SERUM 3.9 MMOL/L (3.5-5.1); SODIUM LEVEL 144 MMOL/L (136-145)
[2023-07-31 14:08] LABS: ANA (HEP2) Positive (.)
== END ==
LOC: M LAB 16:44
PROVIDERS: ATTEND Nurse Practitioner Family
DX: R21 Rash and other nonspecific skin eruption (principal)

== ENCOUNTER → 2023-09-19 | Outpatient (REF) | payer MEDICARE | LOC: M LAB REF 16:43 | PROVIDERS: ATTEND Internal Medicine | DX: G40.309 Generalized idiopathic epilepsy and epileptic syndromes, not intractable, without status epilepticus (principal) ==

== ENCOUNTER → 2023-09-28 | Outpatient (CLI) | payer MEDICARE | LOC: M PLARAD 11:52 | PROVIDERS: ATTEND Nurse Practitioner Family | DX: Z08 Encounter for follow-up examination after completed treatment for malignant neoplasm (principal); Z85.3 Personal history of malignant neoplasm of breast; R21 Rash and other nonspecific skin eruption; Z85.828 Personal history of other malignant neoplasm of skin | CPT/HCPCS: 78815; A9552 ==

== ENCOUNTER → 2024-03-08 | Outpatient (REF) | payer MEDICARE ==
[~2024-03-08] MED LIST changes: -OXYB5TAB11 PO; +OXYB5TAB14 PO; -POTA10CA60 PO; +POTA10CA70 PO
== END ==
LOC: M LAB REF 16:29
PROVIDERS: ATTEND Internal Medicine
DX: G40.309 Generalized idiopathic epilepsy and epileptic syndromes, not intractable, without status epilepticus (principal)

== ENCOUNTER → 2024-03-25 | Outpatient (CLI) | payer MEDICARE | LOC: M WHC 09:37 | PROVIDERS: ATTEND Internal Medicine | DX: M81.0 Age-related osteoporosis without current pathological fracture (principal); M85.851 Other specified disorders of bone density and structure, right thigh ==

== ENCOUNTER 2024-08-10 13:07 | Observation (INO) | payer MEDICARE ==
[~2024-08-10] VITALS: Ht 152.4 cm; Wt 94.6 kg
[2024-08-10] MEDS ORDERED: ISOVUE-370 76% 100ML VIAL As Ordered ONE (13:43)
[2024-08-10] MEDS: MECLIZINE 25 MG TABLET PO ONE (13:44)
[2024-08-10 13:54] LABS: BASO # 0.1 10^3/uL (0.0-0.2); BASO % 0.8 % (0.0-1.0); EOS # 0.1 10^3/uL (0.0-0.5); EOS % 1.1 % (0.0-3.0); HEMOGLOBIN 15.2 g/dl (12.0-15.5); LYMPH # 1.6 10^3/uL (1.5-5.0); LYMPH % 21.5 % (24.0-44.0); MEAN CORPUSCULAR HEMOGLOBIN 30.8 pg (27.0-33.0); MEAN CORPUSCULAR VOLUME 99.4 fl (80.0-96.0); MONO # 0.5 10^3/uL (0.0-0.8); MONO % 5.9 % (2.0-8.0); NEUTROPHILS # 5.3 10^3/uL (1.5-8.5); NEUTROPHILS % 69.8 % (36.0-66.0); PLATELET COUNT, AUTOMATED 212 10^3/uL (150-450); RED BLOOD COUNT 4.93 10^6/uL (4.00-5.40); WHITE BLOOD COUNT 7.6 10^3/uL (4.0-10.0)
[2024-08-10 14:10] LABS: INR 1.17; PROTHROMBIN TIME 15.2 SECONDS (12.5-14.5)
[2024-08-10] MEDS: ONDANSETRON 4MG 2ML VIAL IV ONE (14:17)
[2024-08-10] MEDS: NS 500 ML IV ONE (14:18)
[2024-08-10 14:24] LABS: BLOOD UREA NITROGEN 8 MG/DL (9-23); CALCIUM LEVEL 9.3 MG/DL (8.3-10.6); CARBON DIOXIDE LEVEL 24 MMOL/L (20-31); CHLORIDE LEVEL 115 MMOL/L (98-107); CK-MB VALUE MASS < 1.0 NG/ML (<3.6); CREATININE FOR GFR 0.69 MG/DL (0.55-1.30); GLOMERULAR FILTRATION RATE > 60.0 (>39); GLUCOSE, FASTING 134 MG/DL (74-106); POTASSIUM SERUM 4.3 MMOL/L (3.5-5.1); SODIUM LEVEL 145 MMOL/L (136-145)
[2024-08-10 14:26] LABS: CPK CREATINE PHOSPHOKINASE 31 U/L (34-145); MB/CK RELATIVE INDEX 3.22 (< OR =4)
[2024-08-10 15:36] LABS: CK-MB VALUE MASS < 1.0 NG/ML (<3.6)
[2024-08-10 15:37] LABS: CPK CREATINE PHOSPHOKINASE 24 U/L (34-145); MB/CK RELATIVE INDEX 4.16 (< OR =4)
[2024-08-10] MEDS: ACETAMINOPHEN 325 MG TAB PO ONE (17:37)
[2024-08-10] MEDS ORDERED: LEVE500T5 PO (17:56)
[2024-08-10] MEDS ORDERED: ASPI81TA26 PO (17:56)
[2024-08-10] MEDS ORDERED: XARE10TA PO (17:56)
[2024-08-10] MEDS ORDERED: CALC1TAB42 PO (17:56)
[2024-08-10] MEDS ORDERED: ALEN70TA82 PO (17:56)
[2024-08-10] MEDS ORDERED: HOME MED LIST COMPLETE! XX SCH (18:00)
[2024-08-10] MEDS ORDERED: **hydrALAZINE** 10 MG TAB PO PRN (18:20)
[2024-08-10] MEDS: predniSONE 20 MG TAB PO SCH (18:59)
[2024-08-10] MEDS: ASPIRIN 81MG ENTERIC TABLET PO SCH (18:59)
[2024-08-10 20:48] VITALS: BP 134/67; TEMP 97.5; O2SAT 96
[2024-08-10] MEDS: BACLOFEN 10 MG TAB PO SCH (21:41)
[2024-08-10] MEDS: RIVAROXABAN 10MG TAB (XARELTO) PO SCH (21:41)
[2024-08-10] MEDS: MECLIZINE 25 MG TABLET PO SCH (21:41)
[2024-08-10] MEDS: levETIRAcetam 250MG TABLET (KEPPRA) PO SCH (21:41)
[2024-08-10] MEDS: SIMVASTATIN 20 MG TAB PO SCH (21:42)
[2024-08-10] MEDS: TOPIRAMATE (TopAMAX) 100 MG TAB PO SCH (21:43)
[2024-08-10] MEDS ORDERED: PILL CUTTER 1 EACH XX ONE (21:44)
[2024-08-11 06:10] VITALS: BP 140/88; TEMP 97.5; O2SAT 93
[2024-08-11 07:04] LABS: HEMATOCRIT 46.7 % (36.0-47.0); HEMOGLOBIN 14.3 g/dl (12.0-15.5); MEAN CORPUSCULAR HEMOGLOBIN 30.7 pg (27.0-33.0); MEAN CORPUSCULAR HGB CONC 30.6 g/dl (32.0-36.5); MEAN CORPUSCULAR VOLUME 100.2 fl (80.0-96.0); PLATELET COUNT, AUTOMATED 211 10^3/uL (150-450); RED BLOOD COUNT 4.66 10^6/uL (4.00-5.40); WHITE BLOOD COUNT 9.2 10^3/uL (4.0-10.0)
[2024-08-11 07:25] LABS: BLOOD UREA NITROGEN 11 MG/DL (9-23); CALCIUM LEVEL 9.2 MG/DL (8.3-10.6); CARBON DIOXIDE LEVEL 24 MMOL/L (20-31); CHLORIDE LEVEL 113 MMOL/L (98-107); CREATININE FOR GFR 0.73 MG/DL (0.55-1.30); GLOMERULAR FILTRATION RATE > 60.0 (>39); GLUCOSE, FASTING 150 MG/DL (74-106); POTASSIUM SERUM 4.4 MMOL/L (3.5-5.1); SODIUM LEVEL 143 MMOL/L (136-145)
[2024-08-11 19:24] VITALS: BP 118/65; TEMP 96.8; O2SAT 91
[2024-08-12 03:22] VITALS: BP 159/70; TEMP 97.9; O2SAT 92
[2024-08-12] MEDS ORDERED: MECL-86 PO (10:35)
[2024-08-12 12:00] VITALS: BP 119/61; TEMP 97.5; O2SAT 92
== END 2024-08-12 13:30 | disposition home or self-care (01) ==
LOC: EDBD 13:07 → M ED 13:07 → M ED INP 13:08 → M MS5PR 20:13
PROVIDERS: ADMIT Internal Medicine; ATTEND Internal Medicine
DX: R42 Dizziness and giddiness (principal); G35 Multiple sclerosis; G40.909 Epilepsy, unspecified, not intractable, without status epilepticus; Z85.3 Personal history of malignant neoplasm of breast; Z90.13 Acquired absence of bilateral breasts and nipples; Z92.3 Personal history of irradiation; Z92.21 Personal history of antineoplastic chemotherapy; Z86.711 Personal history of pulmonary embolism; R91.8 Other nonspecific abnormal finding of lung field; G47.33 Obstructive sleep apnea (adult) (pediatric); M19.90 Unspecified osteoarthritis, unspecified site; M54.9 Dorsalgia, unspecified; R26.89 Other abnormalities of gait and mobility; Z90.49 Acquired absence of other specified parts of digestive tract; G89.29 Other chronic pain; E78.5 Hyperlipidemia, unspecified; Z79.82 Long term (current) use of aspirin; Z79.899 Other long term (current) drug therapy; Z88.1 Allergy status to other antibiotic agents; Z88.8 Allergy status to other drugs, medicaments and biological substances; Z91.040 Latex allergy status
CPT/HCPCS: 36415; 70450; 70496; 70498; 70551; 71045; 80047; 80048; 81001; 82550; 82553; 84145; 84484; 85025; 85027; 85610; 85730; 87088; 87486; 87581; 87633; 87798; 93005; 93041; 94760; 96361; 96374; 97112; 97116; 97161; 99285; G0378; J2405; J7512; Q9967

== ENCOUNTER → 2024-09-26 | Outpatient (CLI) | payer MEDICARE ==
[~2024-09-26] MED LIST changes: +ASPI81TA26 PO; +LEVE500T5 PO; +MECL-86 PO; +XARE10TA PO
== END ==
LOC: M WUC 14:01
PROVIDERS: ATTEND Internal Medicine
DX: R91.8 Other nonspecific abnormal finding of lung field (principal)